=== PATIENT | female | born 1980 | race Caucasian/White ===

== ENCOUNTER 2020-01-13 14:30 | Outpatient (CLI) | payer BC, SELFPAY ==
[2020-01-13 14:58] LABS: Basophils Percent Auto 0.4 % (0.2-1.2); Eosinophils Absolute Auto 0.1 K/mm3 (0-0.3); Eosinophils Percent Auto 0.8 % (0-4.4); Hematocrit 42.1 % (37.0-47.0); Hemoglobin 14.1 g/dL (12.0-15.0); Immature Granulocyte Absolute 0.02 K/mm3 (0.00-0.031); Immature Granulocyte Percent A 0.2 % (0-0.5); Lymphocytes Absolute Auto 4.32 K/mm3 (0.9-3.2); Lymphocytes Percent Auto 40.4 % (18.3-44.2); Mean Corpuscular HGB Conc 33.5 g/dl (32-36); Mean Corpuscular Hemoglobin 31.2 pg (26-34); Mean Corpuscular Volume 93.1 fl (80-100); Mean Platelet Volume 9.1 fl (7.4-10.4); Monocytes Absolute Auto 0.7 K/mm3 (0.1-0.6); Monocytes Percent Auto 6.6 % (2.6-8.5); Neutrophils Absolute Auto 5.5 K/mm3 (1.3-6.7); Neutrophils Percent Auto 51.6 % (45.5-73.1); Platelet Count Result 330 k/mm3 (150-375); Red Blood Count 4.52 M/mm3 (4.2-5.4); Red Cell Distribution Width 13.4 % (11.5-14.5); White Blood Count 10.7 K/mm3 (4.5-10.0)
[2020-01-13 15:03] LABS: Add Urine Microscopic? YES; Appearance Urine Cloudy (Clear); Bacteria Urine Trace /hpf; Bilirubin Urine Negative (Negative); Blood Urine Negative (Negative); Color Urine Yellow (Yellow); Glucose Urine UA Negative (Negative); Ketones Urine Negative (Negative); Leukocyte Esterase Ur 2+ LEU/UL (Negative); Mucus Urine Moderate /lpf; Nitrate Urine Negative (Negative); Protein Urine Negative (Negative); Renal Epithelial Cells Urine Rare /hpf (None Seen); Specific Grav Ur 1.023 (1.001-1.035); Squamous Epithelial Cell Urine Many /hpf (Few); Urobilinogen Urine Negative mg/dL (<2.0)
[2020-01-13 15:12] LABS: Alanine Aminotransferase 19 U/L (4-35); Albumin Level 4.2 g/dL (3.5-5.1); Alkaline Phosphatase 97 U/L (38-126); Aspartate Amino Transferase 27 U/L (14-36); Bilirubin,Total 0.2 mg/dL (0.2-1.3); Blood Urea Nitrogen 12 mg/dL (7-17); Calcium 9.4 mg/dL (8.4-10.2); Carbon Dioxide 26 mmol/L (22-30); Chloride 105 mmol/L (98-107); Estimated Glomerular Filt Rate > 60; Glucose 101 mg/dL (65-105); Sodium 136 mmol/L (137-145)
== END 2020-01-13 14:31 | disposition home or self-care (01) ==
PROVIDERS: PCP Family Medicine; Visit Provider Family Medicine
DX: R10.9 Unspecified abdominal pain (principal)
CPT/HCPCS: 36415; 80053; 81001; 85025; 87077; 87086; 87088; 87186

== ENCOUNTER 2020-02-15 07:42 | Outpatient (CLI) | payer BC, SELFPAY ==
--- NOTE | ~2020-02-15 | US_ITS ---
EXAMINATION: US right upper quadrant DATE: 02/15/2020 08:11 INDICATION: Unspecified abdominal pain. TECHNIQUE: Multiple grayscale and Doppler ultrasound images of the abdomen were obtained. COMPARISON: CT abdomen and pelvis 11/16/2011 FINDINGS: The visualized portions of the head and body of the pancreas are normal. The liver is zan l without focal lesion. No liver surface nodularity. There is normal flow in main portal vein. The ga llbladder is normal in size. No gallstones or gallbladder wall thickening. There was no sonographic M urphy sign. The common duct is normal and measures 5 mm. IMPRESSION: 1. Normal right upper quadrant ultrasound. Reviewed, dictated and finalized at location A.
== END 2020-02-15 07:43 | disposition home or self-care (01) ==
PROVIDERS: PCP Family Medicine; Visit Provider Family Medicine
DX: R10.9 Unspecified abdominal pain (principal); R11.0 Nausea
CPT/HCPCS: 76705

== ENCOUNTER 2020-02-17 10:11 | Outpatient (CLI) | payer BC, SELFPAY ==
--- NOTE | ~2020-02-17 | CT_ITS ---
EXAMINATION: CT abdomen pelvis w con EXAM DATE: 02/17/2020 11:32 INDICATION: Left lower quadrant pain. Clinical concern for diverticulitis. TECHNIQUE: Spiral CT of the abdomen and pelvis was performed following intravenous injection of 100 m L Omnipaque 350. Axial, coronal and sagittal images were reviewed. The dose-length product (DLP) fo r this examination was 1111.15 mGy-cm. The exposure was tailored according to patient size (auto mA exposure control), and iterative reconstruction (ASIR) was used as additional dose reduction techniqu e. Comparison is made to prior examination from 11/16/2011. FINDINGS: The liver, spleen, adrenal glands and pancreas are unremarkable. Gallbladder is unremarkab le. No biliary obstruction. Portal and splenic veins are patent. Kidneys enhance symmetrically. T here is no hydronephrosis. The uterus is anteverted and morphologically normal. The bladder is un remarkable. There is no retroperitoneal or pelvic lymphadenopathy. Tiny umbilical fat-containing h ernia. The appendix is normal. The stomach and small bowel are unremarkable. There is expected amount of c olonic stool. No free intraperitoneal gas. The heart is normal in size. There are no pericardial or pleural effusions. The lung bases are unremarkable. The bones are unremarkable. IMPRESSION: 1. Unremarkable CT abdomen pelvis exam. Reviewed, dictated and finalized at location A.
== END 2020-02-17 10:12 | disposition home or self-care (01) ==
PROVIDERS: PCP Family Medicine; Visit Provider Family Medicine
DX: R10.32 Left lower quadrant pain (principal)
CPT/HCPCS: 74177; Q9967

== ENCOUNTER → 2020-08-22 14:15 | Outpatient (CLI) | payer BC, SELFPAY ==
--- NOTE | ~2020-08-22 | MR_ITS ---
EXAMINATION: MR thoracic spine wo con DATE: 08/22/2020 15:34 INDICATION: Thoracic radiculopathy TECHNIQUE: Magnetic resonance imaging (MRI) of the thoracic spine was performed without intravenous c ontrast. Sagittal localizer T1-weighted FSE of the cervicothoracic spine was obtained. Thoracic spine sequences included sagittal T2-weighted FSE, sagittal T1-weighted SE, Sagittal T2-weighted FS FSE, a nd axial T2-weighted FSE. COMPARISON: None FINDINGS: Alignment is normal.Vertebral body heights are normal. Normal marrow signal. Disc heights are normal. There is normal spinal cord signal. The conus terminates at L1. The thoracic discs do not extend bey ond the endplate margins with no central canal stenosis. There is multilevel mild facet osteoarthriti s throughout the thoracic spine with no neural foraminal stenosis. Paravertebral soft tissues are unr emarkable.. IMPRESSION: 1. Mild scattered thoracic facet osteoarthritis with no thoracic central canal or neural foraminal st enosis. Reviewed, dictated and finalized at location . [facility] TE[facility] IMPRESSION: 1. Mild scattered thoracic facet osteoarthritis with no thoracic central canal or neural foraminal stenosis.
== END ==
PROVIDERS: PCP Family Medicine; Visit Provider Pain Medicine Interventional Pain Medicine
DX: M47.24 Other spondylosis with radiculopathy, thoracic region (principal)
CPT/HCPCS: 72146

== ENCOUNTER 2021-02-13 12:42 | Outpatient (CLI) | payer BC, SELFPAY ==
--- NOTE | ~2021-02-13 | XR_ITS ---
EXAMINATION: XR shoulder RT min 2V DATE: 02/13/2021 13:04 INDICATION: Rheumatoid arthritis, seronegative, multiple sites. Right shoulder pain. TECHNIQUE: 4 views of right shoulder were obtained. COMPARISON: None. FINDINGS: Bone alignment is normal. No fracture. Joint spaces are well maintained. IMPRESSION: 1. Normal right shoulder. Reviewed, dictated and finalized at location B. IMPRESSION: 1. Normal right shoulder.
== END 2021-02-13 12:43 ==
PROVIDERS: PCP Family Medicine; Visit Provider Internal Medicine
DX: M06.09 Rheumatoid arthritis without rheumatoid factor, multiple sites (principal)
CPT/HCPCS: 73030

== ENCOUNTER 2022-12-06 10:23 | Outpatient (CLI) | payer BC, SELFPAY ==
--- NOTE | ~2022-12-06 | CT_ITS ---
CT scan of the Neck Technique: 2.5 mm axial scans were obtained through the neck after intravenous administration of 75 c c Omnipaque 350. Coronal and sagittal reconstructions of the neck were obtained. Dose reduction techn ique was used on this scan by utilizing automated exposure control and iterative reconstruction techn ique. The dose-length product (DLP) was 580.15 mGy-cm. Clinical History: Hypertrophy of lingual tonsil Findings: There is a masslike lesion along the posterior margin of the tongue in the lower oropharynx, measurin g approximately 2.4 x 1.2 x 2.5 cm in size (sagittal image 63 for example). There is also apparent pr ominent thickening of the aryepiglottic folds bilaterally. There is severe narrowing of the lower johana pharynx at the region of the aforementioned mass. Question mild thickening of the soft palate. The pa rotid and submandibular glands appear normal. The pharyngeal mucosal spaces appear normal. No soft tissue masses are seen in the neck. The thyroid gland appears normal. Images of the lung apices reveal no abnormalities. Impression: 2.4 x 1.2 x 2.5 cm mass at the lower oropharynx at the posterior margin of the base the tongue, which could reflect enlarged lymph node tonsil versus other soft tissue mass. There is also associated thi ckening of the aryepiglottic folds and probable thickening of the soft palate. Correlate for infectio us/inflammatory disorders versus lymphoma or other neoplasm. Reviewed, dictated and finalized at [facility]. [facility] Impression: 2.4 x 1.2 x 2.5 cm mass at the lower oropharynx at the posterior margin of the base the tongue, which could reflect enlarged lymph node tonsil versus other so ft tissue mass. There is also associated thickening of the aryepiglottic folds and probable thickening of the soft palate. Correlate for infectious/inflammato ry disorders versus lymphoma or other neoplasm.
[2022-12-06 11:00] LABS: Estimated Glomerular Filt Rate > 60
== END 2022-12-06 10:24 | disposition home or self-care (01) ==
PROVIDERS: PCP Family Medicine; Visit Provider Otolaryngology
DX: J35.1 Hypertrophy of tonsils (principal); K14.9 Disease of tongue, unspecified
CPT/HCPCS: 70491; Q9967